=== PATIENT | female | born 1950 | race Caucasian/White ===

== ENCOUNTER → 2016-11-22 | Outpatient (CLI) | payer BC | LOC: LAB 15:28 | PROVIDERS: ATTEND Family Medicine | DX: M79.7 Fibromyalgia (principal); E07.9 Disorder of thyroid, unspecified; E34.9 Endocrine disorder, unspecified; N95.1 Menopausal and female climacteric states | CPT/HCPCS: 36415; 82626; 82627; 82670; 84144; 84403; 84439; 84443; 84481; 84482; 86141 ==